=== PATIENT | female | born 2000 | race Caucasian/White ===

== ENCOUNTER → 2020-04-27 | Outpatient (CLI) | payer BC ==
[~2020-04-27] MED LIST: CLARITIN5 MG/5 ML PO; PRELONE5 MG/5 ML PO
== END | disposition home or self-care (01) ==
LOC: COVID19 11:29
PROVIDERS: ATTEND Student in an Organized Health Care Education/Training Program
DX: U07.1 COVID-19 (principal)

== ENCOUNTER → 2021-08-28 | Outpatient (CLI) | payer BC ==
[2021-08-28 11:50] LABS: BASO % 0.6 % (0.0-1.0); EOS # 0.1 10*3/uL (0.0-0.4); EOS % 1.4 % (1.0-4.0); LYMPH # 1.4 10*3/uL (1.3-4.4); LYMPH % 22.6 % (27.0-41.0); MEAN CELL VOLUME 84.9 fl (81.0-99.0); MEAN CORPUSCULAR HGB 26.7 pg (27.0-31.0); MEAN CORPUSCULAR HGB CONC 31.4 g/dl (33.0-37.0); MEAN PLATELET VOLUME 12.4 fl (9.6-12.3); MONO # 0.5 10*3/uL (0.1-1.0); MONO % 7.3 % (3.0-9.0); NEUT # 4.3 10*3/uL (2.3-7.9); NEUT % 67.6 % (47.0-73.0); PLATELET COUNT AUTOMATED 220 10*3/uL (130-400); RED BLOOD COUNT 4.24 10*6/uL (4.10-5.10); RED CELL DISTRI WIDTH 13.7 % (0-14.5); WHITE BLOOD COUNT 6.3 10*3/uL (4.8-10.8)
== END | disposition home or self-care (01) ==
LOC: LAB 11:10
PROVIDERS: ATTEND Dentist Oral and Maxillofacial Surgery
DX: Z01.812 Encounter for preprocedural laboratory examination (principal); M26.02 Maxillary hypoplasia; M26.03 Mandibular hyperplasia; M26.4 Malocclusion, unspecified; M26 Dentofacial anomalies [including malocclusion]

== ENCOUNTER 2021-09-05 13:52 | Emergency (ER) | payer BC ==
[~2021-09-05] VITALS: Wt 54.4 kg
[2021-09-05] MEDS ORDERED: OXYCODONE H5 MG/5 ML PO (14:10)
[2021-09-05 14:53] LABS: BASO % 0.2 % (0.0-1.0); EOS # 0.1 10*3/uL (0.0-0.4); EOS % 0.7 % (1.0-4.0); HEMATOCRIT 36.3 % (37.0-47.0); LYMPH # 1.4 10*3/uL (1.3-4.4); LYMPH % 10.5 % (27.0-41.0); MEAN CORPUSCULAR HGB 27.1 pg (27.0-31.0); MEAN CORPUSCULAR HGB CONC 32.2 g/dl (33.0-37.0); MEAN PLATELET VOLUME 11.4 fl (9.6-12.3); MONO # 0.7 10*3/uL (0.1-1.0); MONO % 5.5 % (3.0-9.0); NEUT # 10.6 10*3/uL (2.3-7.9); NEUT % 82.1 % (47.0-73.0); PLATELET COUNT AUTOMATED 360 10*3/uL (130-400); RED BLOOD COUNT 4.32 10*6/uL (4.10-5.10); RED CELL DISTRI WIDTH 13.4 % (0-14.5)
[2021-09-05 15:10] LABS: ALKALINE PHOSPHATASE 72 U/L (45-117); BUN 18 mg/dl (7-24); CHLORIDE 102 mmol/L (98-107); CREATININE 0.81 mg/dL (0.55-1.02); POTASSIUM 3.9 mmol/L (3.5-5.1); SGOT/AST 14 IU/L (3-35); SGPT/ALT 20 U/L (12-78); SODIUM 133 mmol/L (136-145); TOTAL PROTEIN 8.5 gm/dL (6.4-8.2)
[2021-09-05 18:02] LABS: BILIRUBIN 1+ (Negative); BLOOD Negative (Negative); CLARITY Turbid (Clear); COLOR Dark Yellow (Yellow); GLUCOSE Negative (Negative); KETONE 3+ (Negative); LEUKO ESTERASE 3+ (Negative); NITRITE Negative (Negative); PH 6.5 (4.5-8.0); SPECIFIC GRAVITY >= 1.030 (1.001-1.030)
[2021-09-05 18:17] LABS: BACTERIA 3+; EPITHELIAL CELLS 21-30; WBC TNTC wbc/hpf (0-5)
[2021-09-05] MEDS ORDERED: FLAGYL 375375 MG PO (18:25)
[2021-09-05 20:02] VITALS: BP 96/54
== END 2021-09-05 18:47 | disposition home or self-care (01) ==
LOC: ED 13:52
PROVIDERS: Emergency Medicine
DX: R55 Syncope and collapse (principal)

== ENCOUNTER 2023-07-15 17:24 | Emergency (ER) | payer BC ==
[~2023-07-15] VITALS: Ht 170.1 cm; Wt 63.5 kg
[~2023-07-15 17:24] MED LIST changes: +FLAGYL 375375 MG PO; +OXYCODONE H5 MG/5 ML PO
[2023-07-15 17:35] VITALS: BP 122/62
[2023-07-15] MEDS ORDERED: PENICILLIN VK500 MG PO (19:06)
== END 2023-07-15 19:26 | disposition home or self-care (01) ==
LOC: ED 17:24
DX: J02.0 Streptococcal pharyngitis (principal); Z20.822 Contact with and (suspected) exposure to COVID-19; Z79.899 Other long term (current) drug therapy